=== PATIENT | male | born 1995 | race Two or more races ===

== ENCOUNTER 2017-06-13 14:07 | Emergency (ER) | payer OTHER ==
[~2017-06-13] VITALS: Ht 175.3 cm; Wt 91.2 kg
[2017-06-13 17:53] VITALS: BP 146/77
== END 2017-06-13 17:56 | disposition home or self-care (01) ==
LOC: ED 14:07
DX: S51.812A Laceration without foreign body of left forearm, initial encounter (principal); X58.XXXA Exposure to other specified factors, initial encounter; Y93.89 Activity, other specified; Y99.8 Other external cause status; Y92.89 Other specified places as the place of occurrence of the external cause
CPT/HCPCS: 90715; J0690; J2001; Q0092